=== PATIENT | male | born 1985 ===

== ENCOUNTER → 2018-03-05 | Outpatient (CLI) | payer OTHER ==
[~2018-03-05] VITALS: Ht 170.2 cm; Wt 114.3 kg
[~2018-03-05] MED LIST: FLONASE16 GM NASAL; LIPO-FLAVONOID1 EACH PO
== END | disposition home or self-care (01) ==
LOC: OFIC 805 08:15
DX: H70.893 Other mastoiditis and related conditions, bilateral (principal); J31.0 Chronic rhinitis; R42 Dizziness and giddiness

== ENCOUNTER 2018-03-27 19:21 | Emergency (ER) | payer OTHER ==
[~2018-03-27] VITALS: Ht 170.2 cm; Wt 111.1 kg
== END 2018-03-27 21:29 | disposition home or self-care (01) ==
LOC: ER 19:21
DX: S00.83XA Contusion of other part of head, initial encounter (principal); W10.9XXA Fall (on) (from) unspecified stairs and steps, initial encounter; Y93.89 Activity, other specified; Y92.098 Other place in other non-institutional residence as the place of occurrence of the external cause; Y99.8 Other external cause status

== ENCOUNTER 2018-04-23 10:10 | Outpatient (CLI) | payer OTHER ==
[~2018-04-23] VITALS: Ht 152.4 cm; Wt 114.3 kg
== END 2018-04-23 10:30 | disposition home or self-care (01) ==
LOC: OFIC 805 10:10
DX: H70.893 Other mastoiditis and related conditions, bilateral (principal); J31.0 Chronic rhinitis; R42 Dizziness and giddiness

== ENCOUNTER 2018-05-23 10:21 | Outpatient (CLI) | payer OTHER ==
[~2018-05-23] VITALS: Ht 152.4 cm; Wt 114.3 kg
== END 2018-05-23 10:40 | disposition home or self-care (01) ==
LOC: OFIC 805 10:21
DX: R42 Dizziness and giddiness (principal)

== ENCOUNTER 2018-06-27 07:21 | Outpatient (CLI) | payer OTHER ==
[~2018-06-27] VITALS: Ht 152.4 cm; Wt 114.3 kg
== END 2018-06-27 07:40 | disposition home or self-care (01) ==
LOC: OFIC 805 07:21
DX: R42 Dizziness and giddiness (principal)